=== PATIENT | female | born 1950 | race Caucasian/White ===

== ENCOUNTER 2018-06-01 10:16 | Emergency (ER) | payer OTHER ==
[2018-06-01] MEDS ORDERED: IPRATROPIUM/ALBUTEROL 3 ML DEYVIAL IH ONE (10:27)
[2018-06-01] MEDS ORDERED: RANITIDINE 50 MG/2 ML VIAL IVP ONE (10:48)
--- NOTE | 2018-06-01 10:51 | EDPHY ---
H & P Stated Complaint: allergic reaction to meds Time Seen by Provider: 06/01/18 10:25 HPI/ROS: CHIEF COMPLAINT: Hives and coughing History by patient HISTORY OF PRESENT ILLNESS: 68-year-old woman with a history of recurrent hives from unclear etiology presents with recurrence of her hives as well as coughing and shortness of breath. Patient finished a course of prednisone for the itchy rash 1 week ago. A few days later she developed symptoms of sinus congestion, right ear pain, cough and malaise. She saw her primary care physician 2 days ago who started her on azithromycin. The patient took her 1st dose of azithromycin and within 2 hr had again developed itching and hives. She denies any mouth lesions, tongue swelling or throat tightness. Subsequently she has been itchy, coughing and feeling like she has been having some difficulty breathing. Yesterday she took a Benadryl and Zantac but has not taken any today. She said she had a"low-grade fever"she saw her PCP 2 days ago but denies any fever at home. She denies any dyspnea with exertion, chest pain, nausea or vomiting. Patient is on verapamil for migraine prevention and has no prior history of hypertension. Patient is followed by industrial spraypainter for these recurrent hives. REVIEW OF SYSTEMS: As in HPI, and all other systems reviewed and are negative Source: Patient - Personal History Current Tetanus Diphtheria and Acellular Pertussis (TDAP): Unsure - Medical/Surgical History Hx Asthma: Yes Hx Chronic Respiratory Disease: No Hx Diabetes: No Hx Cardiac Disease: No Hx Renal Disease: No Hx Cirrhosis: No Hx Alcoholism: No Hx HIV/AIDS: No Hx Splenectomy or Spleen Trauma: No Other PMH: Migraines. depression. Lumbar spinal fusion o. ovary right removed. Right total hip. tonsilectomy. Hyster. Bladder repair - Social History Smoking Status: Never smoked - Physical Exam Exam: General Appearance: Alert, uncomfortable and slightly tachypneic. Speaking full sentences Head: normocephalic, atraumatic Eyes: Pupils equal and round, reactive to light, no pallor or injection. Mouth: Mucous membranes moist. No tongue swelling or drooling Respiratory: Normal, effort, lungs are clear to auscultation but positive wheezy cough throughout, no stridor Cardiovascular: Regular rate and rhythm. S1, S2, no murmurs, gallops or rubs appreciated Gastrointestinal: Abdomen is soft and nontender, no masses, bowel sounds normal. Back: No CVA tenderness, no bony tenderness Neurological: Awake, alert and oriented x 3, no pronator drift, normal gait, no pronator drift Skin: Warm and dry, diffuse scattered urticaria Musculoskeletal: No deformities or tenderness. Extremities: full range of motion, no edema, DP2+ bilat Psychiatric: Patient has normal affect, there is no agitation. Constitutional: Initial Vital Signs Temperature (C) 36.8 C 06/01/18 10:21 Heart Rate 86 06/01/18 10:21 Respiratory Rate 20 06/01/18 10:21 Blood Pressure 163/98 H 06/01/18 10:21 O2 Sat (%) 94 06/01/18 10:21 O2 Delivery Mode Room Air Allergies/Adverse Reactions: codeine Allergy (Verified 06/01/18 10:25) Penicillins Allergy (Verified 06/01/18 10:25) Home Medications: Medication Instructions Recorded VERAPAMIL HCL 04/03/10 Duloxetine HCl 10/16/14 SUMAtriptan 10/16/14 Azithromycin 06/01/18 Monolucast 06/01/18 Medical Decision Making ED Course/Re-evaluation: 68-year-old woman presents with allergic reaction, likely to azithromycin, but no evidence of acute anaphylaxis. She was given albuterol for her wheezy cough with improvement in air movement on repeat exam but persistence of the wheezy cough. Oxygen saturations improved and were within normal limits on room air after the neb. Patient was given IV Benadryl and ranitidine. Because the patient just finished a course of steroids she was reluctant to restart steroids and so we held off on the Solu-Medrol to see if she would respond to the antihistamines. Given her shortness of breath and wheezing and chest x-ray was obtained which showed no evidence of pneumonia or other acute process. On re-evaluation the patient was feeling much better with resolution and great improvement in her hives. Her shortness of breath also greatly improved she did request a 2nd nebulizer she continued to have slightly wheezy cough. There is no evidence of hypoxia or respiratory distress. I recommended the patient stop the azithromycin and we will not start other antibiotics as there is no current evidence of active bacterial infection. I am recommending the patient continue antihistamines, cetirizine, for the next few days as well as Zantac as needed and follow up with her primary care physician and industrial spraypainter. I specifically recommend she gets testing by her industrial spraypainter for azithromycin allergy as is possible the current presentation is just a recurrence of the previous urticaria reaction. Patient understands and is agreeable to this plan. - Data Points Medications Given: Discontinued Medications Albuterol (Proventil Neb) 3 ml IH EDNOW ONE Stop: 06/01/18 11:52 Last Admin: 06/01/18 11:55 Dose: 3 ml Albuterol/Ipratropium (Duoneb) 3 ml IH EDNOW ONE Stop: 06/01/18 10:28 Last Admin: 06/01/18 10:34 Dose: 3 ml Diphenhydramine HCl (Benadryl Injection) 50 mg IVP EDNOW ONE Stop: 06/01/18 10:49 Last Admin: 06/01/18 11:02 Dose: 50 mg Ranitidine HCl (Zantac) 50 mg IVP EDNOW ONE Stop: 06/01/18 10:49 Last Admin: 06/01/18 11:05 Dose: 50 mg Departure - Departure Disposition: Home, Routine, Self-Care Clinical Impression: Allergic reaction Qualifiers: Encounter type: initial encounter Qualified Code(s): T78.40XA - Allergy, unspecified, initial encounter Condition: Good Instructions: General Allergic Reaction (ED) Additional Instructions: You were seen by Dr. Brittany Lemon today. Please continue to take Zyrtec (cetirizine) if your hives continue as well as Zantac. Please follow-up with your primary care physician and especially your industrial spraypainter to have testing for azithromycin allergy. If her symptoms recur or worsen you may need another trial of prednisone. Return for any worsening or new concerns. Referrals: Lexy Jeffrey MD [Primary Care Provider] - As per Instructions
[2018-06-01] MEDS ORDERED: ALBUTEROL 3 ML DEYVIAL IH ONE (11:51)
[2018-06-01 12:25] VITALS: BP 122/62
== END 2018-06-01 12:26 | disposition home or self-care (01) ==
LOC: CED 10:16
DX: L50.0 Allergic urticaria (principal); T38.0X5A Adverse effect of glucocorticoids and synthetic analogues, initial encounter; J45.909 Unspecified asthma, uncomplicated; T36.3X5A Adverse effect of macrolides, initial encounter
CPT/HCPCS: 71046; 96374; 96375; 99284; J1200; J2780; J7613

== ENCOUNTER 2018-06-02 06:30 | Emergency (ER) | payer OTHER ==
[2018-06-02 06:42] VITALS: BP 148/83
[2018-06-02] MEDS ORDERED: predniSONE 20 MG TAB PO ONE (07:14)
--- NOTE | 2018-06-02 07:14 | EDPHY ---
H & P Stated Complaint: Allergic reaction - hives Time Seen by Provider: 06/02/18 06:40 HPI/ROS: CHIEF COMPLAINT: Itching continues, urticaria continues, difficulty sleeping secondary to rash and cough HISTORY OF PRESENT ILLNESS: This is a 68-year-old patient whose had often on urticaria for the approximately the last 2-3 months. She has been on 3 prior doses of prednisone in that 3 month span, with the most recent being completed 10 days ago. She does have a longstanding history of urticaria particularly in the February and March timeframe, though this seems to be the longest time she has ever experienced. She came down with URI approximately 10 days ago was seen by her PCP. At that time she was on the prednisone. However over this past week, off the prednisone , the URI became more symptomatic. Thus, when seen 2 days ago, by her PCP, she was started on Zithromax. When seen yesterday by Dr. Nelson, as per chart reviewed, it was noted that she had plenty of urticaria over last 2 months prior to starting the Zithromax thus was probably not a role in the high presentation at that point in time. I would agree. Furthermore, she presented with some relative decrease in her O2 sats down to 94 as well as wheezing and responded well to a combination of Benadryl IV, Zantac IV as well as Proventil neb. The patient notes that she had discussion with Dr. Nelosn about her ability to drive home and did so well though she does live in [place], some 30 min away. Granted on Sunday when traffic would be not too bad. However i had a rough night: that when she came in. She noted that the rash is problematic as the Zyrtec was no longer working. When the Benadryl wore off she was having to itch, to the point of causing scabs on her shins as well as left gluteal area. Furthermore the cough was worse when she would lay down, despite the use of the Tessalon Perles she had left over from earlier when seen by her PCP some 10 days ago - she only has a few doses left. She believes she has a pack in the prednisone. Yesterday, upon chart review, is evident that she had a chest x-ray performed and was negative for acute infectious process. I reviewed the chest x-ray report from that visit. Thus while she was recommended to stop the Zithromax there is no additional further antibiotics recommended. The cough itself rattle somewhat but mostly dry. She cannot bring up any phlegm. She has had no fevers with this. There has been no known particular exposure. REVIEW OF SYSTEMS: Constitutional: No fever, no chills. Eyes: No discharge ENT: No sore throat. Cardiovascular: No chest pain, no palpitations. Respiratory: See above Gastrointestinal: No nausea vomiting or diarrhea. No abdominal pain. Genitourinary: No hematuria or frequency. Musculoskeletal: No back pain. Skin: See above. Neurological: No headache. 10 point ROS otherwise negative Source: Patient Exam Limitations: No limitations - Personal History Current Tetanus/Diphtheria Vaccine: Yes Current Tetanus Diphtheria and Acellular Pertussis (TDAP): Yes - Medical/Surgical History Hx Asthma: Yes Hx Chronic Respiratory Disease: No Hx Diabetes: No Hx Cardiac Disease: No Hx Renal Disease: No Hx Cirrhosis: No Hx Alcoholism: No Hx HIV/AIDS: No Hx Splenectomy or Spleen Trauma: No Other PMH: Migraines. depression. Lumbar spinal fusion o. ovary right removed. Right total hip. tonsilectomy. Hyster. Bladder repair - Family History Significant Family History: No pertinent family hx - Social History Smoking Status: Never smoked Alcohol Use: None Drug Use: None - Physical Exam Exam: General Appearance: Alert, no distress. Afebrile. Normal phonation. No respiratory distress. Stopping to cough fairly frequently with a rather harsh sounding, raspy cough. No signs of confusion Eyes: Pupils equal and round no pallor or injection. No icterus ENT, Mouth: Mucous membranes moist Pharynx without erythema or exudate. TM Clear. Neck: No adenopathy. Supple. No JVD. Trachea in midline. Respiratory: There are no retractions, lungs are clear to auscultation. No wheezing heard, , no respiratory distress. Chest wall: Nontender to palpation. No crepitus. Cardiovascular: Regular rate and rhythm, without murmur Abdomen: Soft and nontender, no masses, bowel sounds normal. Femoral pulses equal. Neurological: Ox3. No motor weakness. Sensation intact. Gait nl. Skin: Warm and dry. There is a rash. On the inner aspect of the right elbow and on the flexor aspect of the ankles it does appear to be like large hives. However the area over the left buttock does have morbid appearance of a target type lesion. I certainly do not find any herald spot as would typically being seen in pityriasis rosea. Musculoskeletal: No joint swelling. Extremities: No edema. Homans sign negative. No cords. Psychiatric: Normal affect. Patient is oriented X 3. There is no agitation Constitutional: Initial Vital Signs Temperature (C) 36.7 C 06/02/18 06:40 Heart Rate 82 06/02/18 06:40 Respiratory Rate 17 06/02/18 06:40 Blood Pressure 148/83 H 06/02/18 06:40 O2 Sat (%) 98 06/02/18 06:40 O2 Delivery Mode Room Air Allergies/Adverse Reactions: codeine Allergy (Verified 06/01/18 10:25) Penicillins Allergy (Verified 06/01/18 10:25) Home Medications: Medication Instructions Recorded VERAPAMIL HCL 04/03/10 Duloxetine HCl 10/16/14 SUMAtriptan 10/16/14 Monolucast 06/01/18 Benzonatate 200 mg PO TID PRN #28 capsule 06/02/18 Ropinirole HCl 06/02/18 predniSONE [Prednisone] 20 mg PO BID #20 tablet 06/02/18 Medical Decision Making ED Course/Re-evaluation: I have had the opportunity to review the record from yesterday which is comprehensive as well as interviewed the patient and examined the patient. It is clear that she is looking to get back in the prednisone, which makes sense at this point in time given the extent of her difficulties with his rash to the point of excoriation. I do believe it is at urticaria rather than erythema multiforme due to the large patches on the elbow and flexor aspects of the ankles. As pertains to the URI the chest x-ray reason negative thus there is no reason for her to be on antibiotic at this point in time. I concur. She is getting some improvement with the Tessalon Perles and encouraged to do such. Benadryl for her itching as she has tolerated in the past without any untoward side effects such as confusion as would be seen in the old elderly rather than her which she is more a young elderly. I have cautioned her not to use any other form cold remedies as a often would have Benadryl in them and thus she would be over dosed. She has plenty of her inhaler left but is running low on the Tessalon Perles thus I will be given a prescription for same. These urticaria problems do not seem to be coming back immediately after stopping the prednisone thus the thought as this being chronic hives is not the case. However it is time for allergy consultation and she has been encouraged to do so. She is not using any new creams or medications or herbal products that might be precipitants. Differential Diagnosis: Diagnostic considerations include, but are not limited to, the following: URI, sinusitis, pharyngitis, pneumonia, allergy, influenza, strep throat, contact dermatitis, pityriasis rosea, urticaria, excoriations from itching. - Data Points Medications Given: Discontinued Medications Prednisone (Prednisone) 40 mg PO EDNOW ONE Stop: 06/02/18 07:15 Last Admin: 06/02/18 07:20 Dose: 40 mg Departure - Departure Disposition: Home, Routine, Self-Care Clinical Impression: Urticaria, Upper respiratory infection, viral Condition: Good Instructions: Urticaria (ED) Additional Instructions: Take the BENADRYL once your home. Stop the Zrytec. Continue TESSALON / (aka Benzonatate) for the cough. However, as your on Benadryl and BENZONATATE, do not take any other cold medications. Continue the PROVENTIL INHALER as needed for cough and shortness of breath. Start the PREDNISONE: See your Doctor or an RECOVERY ADVOCATE as it has been so recurrent of late. Prescriptions: Benzonatate 200 mg PO TID PRN #28 capsule PRN Reason: Cough predniSONE [Prednisone] 20 mg PO BID #20 tablet
== END 2018-06-02 07:26 | disposition home or self-care (01) ==
LOC: CED 06:30
DX: L50.9 Urticaria, unspecified (principal); J06.9 Acute upper respiratory infection, unspecified; J45.909 Unspecified asthma, uncomplicated
CPT/HCPCS: 99284; J7512